=== PATIENT | female | born 1995 | race Caucasian/White ===

== ENCOUNTER 2024-08-17 05:57 | Inpatient (IN) | payer SELFPAY ==
[2024-08-17] MEDS ORDERED: Methylergonovine 0.2 MG/1 ML Amp IM PRN (09:42)
[2024-08-17] MEDS ORDERED: Misoprostol 200 MCG Tab PO PRN (09:42)
[2024-08-17] MEDS ORDERED: Lidocaine 1% 50 ML MDV INJECT PRN (09:42)
[2024-08-17] MEDS ORDERED: Tranexamic Acid in NACL,ISO-OS 1,000 MG in Premix Bag 1 BAG IV PRN (09:42)
[2024-08-17] MEDS ORDERED: Carboprost Tromethamine 250 MCG/1 mL Vial IM PRN (09:42)
[2024-08-17] MEDS ORDERED: Sodium Chloride 0.9% 20 ML SDV IV PRN (09:42)
[2024-08-17] MEDS ORDERED: Sodium Chloride 0.9% 2.5 ML Syringe FLUSH PRN (09:42)
[2024-08-17] MEDS ORDERED: Ondansetron 4 MG/2 ML SDV IVPUSH PRN (09:42)
[2024-08-17] MEDS ORDERED: Butorphanol 2 MG/ML SDV IVPUSH PRN (09:42)
[2024-08-17] MEDS ORDERED: Sodium Chloride 0.9% 10 ML Syringe FLUSH PRN (09:42)
[2024-08-17] MEDS ORDERED: Water For Irrigation,Sterile 1,000 ML Container IRR PRN (09:42)
[2024-08-17] MEDS: Lactated Ringers 1,000 ML IV SCH (10:55)
[2024-08-17 11:34] LABS: HEMATOCRIT 36.5 % (37.0-47.0); HEMOGLOBIN 12.9 g/dL (12.0-16.0); MEAN CORPUSCULAR HEMOGLOBIN 30.6 pg (28.0-32.0); MEAN CORPUSCULAR HGB CONC 35.3 g/dL (32.0-36.0); MEAN CORPUSCULAR VOLUME 86.7 fL (83.0-99.0); MEAN PLATELET VOLUME 9.5 fL (9.4-12.3); PLATELET COUNT,PLT 140 K/uL (150-400); RED BLOOD CELL COUNT 4.21 M/uL (4.10-5.30); WHITE BLOOD CELL COUNT,WBC 12.53 K/uL (3.9-11.3)
[2024-08-17] MEDS: Ropivacaine HCl/PF 200 ML ONE (11:55)
[2024-08-17] MEDS ORDERED: Phenylephrine HCl In 0.9% NaCl 1 MG/10 ML Syringe IVPUSH PRN (11:57)
[2024-08-17] MEDS ORDERED: ePHEDrine 50 MG/ML SDV IM PRN (11:57)
[2024-08-17] MEDS ORDERED: ePHEDrine 50 MG/ML SDV IVPUSH PRN (11:57)
[2024-08-17] MEDS ORDERED: dexmedeTOMIDine HCl 200 MCG/2 ML SDV EPIDUR SCH (12:00)
[2024-08-17] MEDS ORDERED: Ropivacaine HCl/PF 400 MG in Premix Bag 1 BAG EPIDUR SCH (12:00)
[2024-08-17] MEDS: Oxytocin/0.9 % Sodium Chloride 30 UNIT/500 ML BAG IV SCH (16:25)
[2024-08-17] MEDS ORDERED: Docusate Sodium 100 MG Cap PO PRN (16:48)
[2024-08-17] MEDS ORDERED: oxyCODONE 5 MG Tab PO PRN (16:48)
[2024-08-17] MEDS ORDERED: Lanolin 100% Cream 7 GM Tube TOP PRN (16:48)
[2024-08-17 17:12] LABS: PH,UMBILICAL ARTERIAL 7.245 (7.18-7.38); PH,UMBILICAL VENOUS 7.284 (7.25-7.45)
[2024-08-17] MEDS: Benzocaine/Menthol 20%-0.5% Spray 78 GM Cannister TOP PRN (19:04)
[2024-08-17] MEDS: Witch Hazel Medicated Pads 40/Jar TOP PRN (19:05)
[2024-08-17] MEDS: Hydrocortisone 2.5% Crm 30 GM Tube TOP PRN (23:16)
[2024-08-17] MEDS: Acetaminophen 500 MG Tab PO PRN (23:18)
[2024-08-18] MEDS: Phenylephrine HCl In 0.9% NaCl 1 MG/10 ML Syringe ONE
[2024-08-18] MEDS: Bupivacaine 0.5% 10 ML SDV ONE
[2024-08-18] MEDS: Bupivacaine 0.5% 10 ML SDV INJECT ONE (00:01)
[2024-08-18 05:33] LABS: HEMATOCRIT 36.9 % (37.0-47.0)
[2024-08-18] MEDS: Ibuprofen 800 MG Tab PO PRN (13:18)
== END 2024-08-18 20:00 | disposition home or self-care (01) | DRG 807 ==
LOC: MW.OBCHECK 05:57 → MW.OB 05:58 → MW.OBCHECK 09:30 → MW.OB 09:42 → OBSVTOIN 16:24 → MW.OB 22:45
PROVIDERS: ADMIT Obstetrics & Gynecology; ATTEND Obstetrics & Gynecology
PROC: 10E0XZZ Delivery of Products of Conception, External Approach (ICD-10-PCS; principal; 2024-08-17)
PROC: 0HQ9XZZ Repair Perineum Skin, External Approach (ICD-10-PCS; 2024-08-17)
PROC: 3E0R3BZ Introduction of Anesthetic Agent into Spinal Canal, Percutaneous Approach (ICD-10-PCS; 2024-08-17)
PROC: 00HU33Z Insertion of Infusion Device into Spinal Canal, Percutaneous Approach (ICD-10-PCS; 2024-08-17)
DX: O70.0 First degree perineal laceration during delivery (principal); Z37.0 Single live birth
CPT/HCPCS: 01967; 36415; 51702; 59025; 59409; 82803; 84112; 85014; 85018; 85027; 86592; 86850; 86900; 86901; A9270-GY; J0665; J2371; J2590; J2795; J7120